=== PATIENT | female | born 1995 | race Caucasian/White ===

== ENCOUNTER 2022-01-15 20:44 | Observation (INO) | payer BC ==
--- NOTE | 2022-01-15 22:04 | ED ---
General Adult HPI - General Chief complaint: Skin/Abscess/Foreign Body Stated complaint: Recheck Time Seen by Provider: 01/15/22 21:36 Source: patient, RN notes reviewed Mode of arrival: ambulatory Limitations: no limitations - History of Present Illness Initial comments: 26-year-old female presents to the emergency department for evaluation of pilonidal cyst. Patient states she has been on oral antibiotics and was seen at [facility] for this complaint. Reports that surgeon there would not be able to see her until Wednesday for this issue, but she is very uncomfortable and unwilling to wait until that time. Denies fever, chills, drainage from the abscess, headache, nausea, vomiting, diarrhea, or dysuria. - Related Data Home Medications Medication Instructions Recorded Confirmed Cephalexin [Keflex] 500 mg PO Q8H 01/15/22 01/15/22 Ibuprofen [Motrin] 600 mg PO TID-W/MEALS PRN 01/15/22 01/15/22 Norgestimate-Ethinyl Estradiol 1 tab PO DAILY 01/15/22 01/15/22 [Sprintec 28 Day Tablet] metroNIDAZOLE [Flagyl] 500 mg PO Q8H 01/15/22 01/15/22 Allergies Allergy/AdvReac Type Severity Reaction Status Date / Time amoxicillin Allergy Unknown Verified 01/15/22 22:34 Iodinated Contrast Media Allergy Rash/Hives Verified 01/16/22 00:23 Penicillins Allergy Unknown Verified 01/15/22 22:34 Review of Systems ROS Statement: Those systems with pertinent positive or pertinent negative responses have been documented in the HPI. ROS Other: All systems not noted in ROS Statement are negative. Past Medical History Past Medical History: No Reported History History of Any Multi-Drug Resistant Organisms: None Reported Past Surgical History: Tonsillectomy Past Psychological History: No Psychological Hx Reported Smoking Status: Never smoker Past Alcohol Use History: Occasional Past Drug Use History: None Reported General Exam Limitations: no limitations (Well-developed, well-nourished female in no acute distress. Initial temperature 98.0, pulse 96 respirations 20, blood pressure 145/92, pulse ox 97% on room air.) General appearance: alert, in no apparent distress Eye exam: Present: normal appearance, PERRL, EOMI. Absent: scleral icterus, conjunctival injection, periorbital swelling ENT exam: Present: normal exam, mucous membranes moist Respiratory exam: Present: normal lung sounds bilaterally. Absent: respiratory distress, wheezes, rales, rhonchi, stridor Cardiovascular Exam: Present: regular rate, normal rhythm, normal heart sounds. Absent: systolic murmur, diastolic murmur, rubs, gallop, clicks GI/Abdominal exam: Present: soft, normal bowel sounds. Absent: distended, tenderness, guarding, rebound, rigid Back exam: Present: other (Large firm, tender, erythematous area on the right buttock near the sacral area; known pilonidal cyst) Neurological exam: Present: alert, oriented X3, CN II-XII intact Psychiatric exam: Present: normal affect, normal mood Skin exam: Present: warm, dry, intact Course Vital Signs 01/15/22 20:50 Temperature 98.0 F Pulse Rate 96 Respiratory 20 Rate Blood Pressure 145/92 O2 Sat by Pulse 97 Oximetry Medical Decision Making - Medical Decision Making This is a 26-year-old female with a recent diagnosis of pilonidal cyst who presents to the emergency department for further evaluation and treatment. Upon exam, patient is appearing and in no acute distress. She did receive 4 mg of morphine IM prior to departure from [facility] therefore is resting comfortably. Pilonidal cyst with abscess formation to the right of the sacrum extending into the buttock; it has no open or draining area. Vital signs are stable. Patient is afebrile and not tachycardic. Laboratory studies were reviewed showing mild leukocytosis. CT shows cystic fluid collection in the midline subcutaneous tissue over the lower sacrum consistent with an abscess with surrounding inflammatory changes. Patient did experience a mild ALLERGIC reaction with injection of contrast dye. She developed hives on her face accompanied by flushing; no oral edema, chest tightness, or shortness of breath. Patient was given Pepcid, Solu-Medrol, and Benadryl with resolution. This patient's care was provided in collaboration with my attending Dr. Rios who spoke with Dr. Borja. He agrees to accept this admission. Antibiotic therapy will be initiated and patient will remain nothing by mouth. Patient is agreeable with this plan. - Lab Data Result diagrams: 01/15/22 22:28 01/15/22 22:28 Lab Results 01/15/22 01/15/22 01/15/22 Range/Units 22:28 22:28 23:00 WBC 11.8 H (3.8-10.6) k/uL RBC 4.27 (3.80-5.40) m/uL Hgb 13.1 (11.4-16.0) gm/dL Hct 38.1 (34.0-46.0) % MCV 89.2 (80.0-100.0) fL MCH 30.6 (25.0-35.0) pg MCHC 34.3 (31.0-37.0) g/dL RDW 11.4 L (11.5-15.5) % Plt Count 241 (150-450) k/uL MPV 7.3 Neutrophils % 77 % Lymphocytes % 15 % Monocytes % 6 % Eosinophils % 1 % Basophils % 0 % Neutrophils # 9.0 H (1.3-7.7) k/uL Lymphocytes # 1.8 (1.0-4.8) k/uL Monocytes # 0.7 (0-1.0) k/uL Eosinophils # 0.1 (0-0.7) k/uL Basophils # 0.0 (0-0.2) k/uL Sodium 135 L (137-145) mmol/L Potassium 3.7 (3.5-5.1) mmol/L Chloride 100 (98-107) mmol/L Carbon Dioxide 21 L (22-30) mmol/L Anion Gap 14 mmol/L BUN 9 (7-17) mg/dL Creatinine 0.59 (0.52-1.04) mg/dL Est GFR (CKD-EPI)AfAm >90 (>60 ml/min/1.73 sqM) Est GFR (CKD-EPI)NonAf >90 (>60 ml/min/1.73 sqM) Glucose 100 H (74-99) mg/dL Calcium 9.5 (8.4-10.2) mg/dL Total Bilirubin 0.7 (0.2-1.3) mg/dL AST 22 (14-36) U/L ALT 11 (4-34) U/L Alkaline Phosphatase 83 (38-126) U/L Total Protein 7.5 (6.3-8.2) g/dL Albumin 4.2 (3.5-5.0) g/dL Urine HCG, Qual Not Detected (Not Detectd) - Radiology Data Radiology results: report reviewed, image reviewed CT of the pelvis with contrast was obtained. Report was reviewed in its entirety. Impression per Dr. Arellano is cystic fluid collection in the flank pain is tissue over the lower sacrum consistent with an abscess with surrounding inflammatory changes. Disposition Clinical Impression: Pilonidal cyst with abscess Disposition: ADMITTED IP TO THIS [facility] Condition: Serious Referrals: Silverio Tinsley MD [Primary Care Provider] - 1-2 days Decision Date: 01/16/22 Decision Time: 03:16
[2022-01-15 22:40] LABS: Basophils % (A) 0 %; Eosinophils # (A) 0.1 k/uL (0-0.7); Eosinophils % (A) 1 %; HCT 38.1 % (34.0-46.0); HGB 13.1 gm/dL (11.4-16.0); Lymphocytes # (A) 1.8 k/uL (1.0-4.8); Lymphocytes % (A) 15 %; MCH 30.6 pg (25.0-35.0); MCHC 34.3 g/dL (31.0-37.0); MCV 89.2 fL (80.0-100.0); Mean Platelet Volume 7.3; Monocytes # (A) 0.7 k/uL (0-1.0); Monocytes % (A) 6 %; Neutrophils % (A) 77 %; Platelet Count 241 k/uL (150-450); RBC 4.27 m/uL (3.80-5.40); RDW 11.4 % (11.5-15.5); WBC 11.8 k/uL (3.8-10.6)
[2022-01-15 22:58] LABS: ALT 11 U/L (4-34); AST 22 U/L (14-36); African American GFR (CKD) >90 (>60 ml/min/1.73 sqM); Albumin 4.2 g/dL (3.5-5.0); Alkaline Phosphatase 83 U/L (38-126); Anion Gap 14 mmol/L; Blood Urea Nitrogen 9 mg/dL (7-17); Calcium 9.5 mg/dL (8.4-10.2); Carbon Dioxide 21 mmol/L (22-30); Chloride 100 mmol/L (98-107); Glucose 100 mg/dL (74-99); Non-African American GFR(CKD) >90 (>60 ml/min/1.73 sqM); Potassium 3.7 mmol/L (3.5-5.1); Sodium 135 mmol/L (137-145); Total Bilirubin 0.7 mg/dL (0.2-1.3); Total Protein 7.5 g/dL (6.3-8.2)
[2022-01-16] MEDS ORDERED: FAMOTIDINE 20 MG/2 ML VIAL IV STA (00:06)
[2022-01-16] MEDS ORDERED: diphenhydrAMINE 50 MG/ML 1 ML VIAL IVP STA (00:06)
[2022-01-16] MEDS ORDERED: methylPREDNISolone SOD SUCCI 125 MG/2 ML VIAL IV STA (00:06)
--- NOTE | 2022-01-16 00:33 | CT ---
EXAMINATION TYPE: CT pelvis w con DATE OF EXAM: 01/15/2022 COMPARISON: None HISTORY: Cyst on tailbone CT DLP: 530.2 mGycm Automated exposure control for dose reduction was used. CONTRAST: Performed with IV Contrast, patient injected with 100 mL of Isovue 300. Images obtained from the level of the iliac crests to the subtrochanteric femurs with IV contrast. There is no free fluid in the pelvis. Bladder distends smoothly. Uterus is anteverted. There is no ev idence of mass within the pelvis. The sacroiliac joints appear intact. Pelvic ring is intact. There i s no evidence of free air. There is 3.6 x 2 cm fluid collection posterior to the lower sacrum in the subcutaneous tissues. There is some surrounding fat stranding. There is no evidence of focal bone destruction. Sacral segments h ave normal alignment. IMPRESSION: Cystic fluid collection in the midline subcutaneous tissues over the lower sacrum consistent with an abscess with surrounding inflammatory changes.
[2022-01-16] MEDS ORDERED: VANCOMYCIN IV PER PHARMACY 1 EACH MISC MISCELLANE PRN (01:40)
[2022-01-16] MEDS ORDERED: VANCOMYCIN 1,250 MG in SODIUM CHLORIDE 0.9% 250 ML IVPB ONE (01:45)
[2022-01-16] MEDS ORDERED: HYDROmorphone 0.5 MG/0.5 ML SYRINGE IVP PRN (02:01)
[2022-01-16] MEDS ORDERED: NALOXONE 0.4 MG/ML 1 ML VIAL IV PRN (02:01)
[2022-01-16] MEDS ORDERED: ONDANSETRON 4 MG/2 ML VIAL IVP PRN (02:01)
[2022-01-16] MEDS ORDERED: KETOROLAC 15 MG/ML 1 ML VIAL IVP PRN (02:01)
[2022-01-16] MEDS: SODIUM CHLORIDE 0.9% 1,000 ML IV SCH ×2 (04:18→12:23)
--- NOTE | 2022-01-16 10:13 | P.GSHP ---
<Claritza Mendez - Last Filed: 01/16/22 10:02> History of Present Illness H&P Date: 01/16/22 CHIEF COMPLAINT: Pilonidal abscess HISTORY OF PRESENT ILLNESS: This is a 26-year-old female with a pilonidal cyst for the past 1 month. Patient has been taking oral antibiotics without improvement. She reports increase in pain in size of the cyst. A week ago she did have drainage from the area. And then the drainage stopped. She went to [facility] yesterday due to the increase in pain at the buttocks sacral area. The patient reports that the surgeon would not be able to see her until Wednesday for this issue. Patient was unwilling to wait and wanted something done. Therefore she presented to [facility]. Computed tomography scan showed cystic fluid collection in the midline subcutaneous tissue over the lower sacrum consistent with an abscess with surrounding inflammatory changes. Patient also reports having fevers. Denies any nausea or vomiting. She did have evidence of leukocytosis with a white count of 11.8. She denies any prior history of a pilonidal cyst. Does report family history with the father and sister who had pilonidal cyst. Denies any diabetes. Past medical HISTORY: See list. PAST SURGICAL HISTORY: See list. MEDICATIONS: See list. ALLERGIES: See list. SOCIAL HISTORY: No illicit drug use. REVIEW OF SYSTEMS: CONSTITUTIONAL: Denies fever or chills. HEENT: Denies blurred vision, vision changes, or eye pain. Denies hemoptysis CARDIOVASCULAR: Denies chest pain or pressure. RESPIRATORY: No shortness of breath. GASTROINTESTINAL: See HPI for pertinent findings HEMATOLOGIC: Denies bleeding disorders. GENITOURINARY: Denies any blood in urine or increased urinary frequency. SKIN: Denies pruitis. Denies rash. PHYSICAL EXAM: VITAL SIGNS: Reviewed GENERAL: Well-developed in no acute distress. HEENT: No sclera icterus. Extraocular movements grossly intact. Moist buccal mucosa. Head is atraumatic, normocephalic. No nasal drainage. ABDOMEN: Soft. Nondistended. Nontender NEUROLOGIC: Alert and oriented. Cranial nerves II through XII grossly intact. SKIN: Patient has area about 3-5 cm and induration and erythema along the left buttocks into the sacral area. No drainage noted. LABORATORY DATA: WBC is 11.8 hemoglobin 13.1 platelets 241 sodium 135 potassium 3.7 BUN 9 creatinine 0.59 LFTs normal Urine hCG negative COVID-19 detected IMAGING: Computed tomography scan findings as stated above ASSESSMENT: 1. Pilonidal abscess PLAN: -Patient scheduled for incision and drainage of pilonidal abscess today with Dr. Borja -Keep patient nothing by mouth -Continue antibiotics -Continue pain medication as needed -Continue IV fluids [employer] Receiving [employer] note has been reviewed by physician. Signing provider agrees with the documented findings, assessment, and plan of care. Past Medical History Past Medical History: No Reported History Additional Past Medical History / Comment(s): has pylinoidal cyst History of Any Multi-Drug Resistant Organisms: None Reported Past Surgical History: Tonsillectomy Past Anesthesia/Blood Transfusion Reactions: No Reported Reaction Past Psychological History: No Psychological Hx Reported Smoking Status: Never smoker Past Alcohol Use History: Occasional Past Drug Use History: None Reported Medications and Allergies Home Medications Medication Instructions Recorded Confirmed Type Cephalexin [Keflex] 500 mg PO Q8H 01/15/22 01/15/22 History Ibuprofen [Motrin] 600 mg PO TID-W/MEALS PRN 01/15/22 01/15/22 History Norgestimate-Ethinyl Estradiol 1 tab PO DAILY 01/15/22 01/15/22 History [Sprintec 28 Day Tablet] metroNIDAZOLE [Flagyl] 500 mg PO Q8H 01/15/22 01/15/22 History Allergies Allergy/AdvReac Type Severity Reaction Status Date / Time amoxicillin Allergy Unknown Verified 01/15/22 22:34 Iodinated Contrast Media Allergy Rash/Hives Verified 01/16/22 00:23 Penicillins Allergy Unknown Verified 01/15/22 22:34 Surgical - Exam Vital Signs Temp Pulse Resp BP Pulse Ox 98.0 F 96 20 145/92 97 01/15/22 20:50 01/15/22 20:50 01/15/22 20:50 01/15/22 20:50 01/15/22 20:50 Results - Labs 01/15/22 22:28 01/15/22 22:28 Abnormal Lab Results - Last 24 Hours (Table) 01/15/22 01/15/22 Range/Units 22:28 22:28 WBC 11.8 H (3.8-10.6) k/uL RDW 11.4 L (11.5-15.5) % Neutrophils # 9.0 H (1.3-7.7) k/uL Sodium 135 L (137-145) mmol/L Carbon Dioxide 21 L (22-30) mmol/L Glucose 100 H (74-99) mg/dL Diabetes panel 01/15/22 Range/Units 22:28 Sodium 135 L (137-145) mmol/L Potassium 3.7 (3.5-5.1) mmol/L Chloride 100 (98-107) mmol/L Carbon Dioxide 21 L (22-30) mmol/L BUN 9 (7-17) mg/dL Creatinine 0.59 (0.52-1.04) mg/dL Glucose 100 H (74-99) mg/dL Calcium 9.5 (8.4-10.2) mg/dL AST 22 (14-36) U/L ALT 11 (4-34) U/L Alkaline Phosphatase 83 (38-126) U/L Total Protein 7.5 (6.3-8.2) g/dL Albumin 4.2 (3.5-5.0) g/dL Calcium panel 01/15/22 Range/Units 22:28 Calcium 9.5 (8.4-10.2) mg/dL Albumin 4.2 (3.5-5.0) g/dL Pituitary panel 01/15/22 Range/Units 22:28 Sodium 135 L (137-145) mmol/L Potassium 3.7 (3.5-5.1) mmol/L Chloride 100 (98-107) mmol/L Carbon Dioxide 21 L (22-30) mmol/L BUN 9 (7-17) mg/dL Creatinine 0.59 (0.52-1.04) mg/dL Glucose 100 H (74-99) mg/dL Calcium 9.5 (8.4-10.2) mg/dL Adrenal panel 01/15/22 Range/Units 22:28 Sodium 135 L (137-145) mmol/L Potassium 3.7 (3.5-5.1) mmol/L Chloride 100 (98-107) mmol/L Carbon Dioxide 21 L (22-30) mmol/L BUN 9 (7-17) mg/dL Creatinine 0.59 (0.52-1.04) mg/dL Glucose 100 H (74-99) mg/dL Calcium 9.5 (8.4-10.2) mg/dL Total Bilirubin 0.7 (0.2-1.3) mg/dL AST 22 (14-36) U/L ALT 11 (4-34) U/L Alkaline Phosphatase 83 (38-126) U/L Total Protein 7.5 (6.3-8.2) g/dL Albumin 4.2 (3.5-5.0) g/dL <Gabino Borja - Last Filed: 01/16/22 13:24> History of Present Illness I have personally seen and examined the patient, reviewed the [facility] /PAs history, exam and MDM and agree with the assessment and plan as written. Based on total visit time, I have performed more than 50% of the visit. As above: CAT scan findings discussed with patient. Recommend incision and drainage of pilonidal cyst with abscess. Patient informed that this would not be a definitive treatment in all likelihood for her pilonidal cyst and that definitive treatment would have to occur after appropriate wound healing. She understands the wound will be left open and packed. Duration to healing is difficult to say with certainty but could last anywhere from a few weeks to a few months. Patient is agreeable at this time. Continue antibiotics. Surgical - Exam Vital Signs Temp Pulse Resp BP Pulse Ox 98.0 F 96 20 145/92 97 01/15/22 20:50 01/15/22 20:50 01/15/22 20:50 01/15/22 20:50 01/15/22 20:50 Results - Labs 01/15/22 22:28 01/15/22 22:28 Abnormal Lab Results - Last 24 Hours (Table) 01/15/22 01/15/22 Range/Units 22:28 22:28 WBC 11.8 H (3.8-10.6) k/uL RDW 11.4 L (11.5-15.5) % Neutrophils # 9.0 H (1.3-7.7) k/uL Sodium 135 L (137-145) mmol/L Carbon Dioxide 21 L (22-30) mmol/L Glucose 100 H (74-99) mg/dL Diabetes panel 01/15/22 Range/Units 22:28 Sodium 135 L (137-145) mmol/L Potassium 3.7 (3.5-5.1) mmol/L Chloride 100 (98-107) mmol/L Carbon Dioxide 21 L (22-30) mmol/L BUN 9 (7-17) mg/dL Creatinine 0.59 (0.52-1.04) mg/dL Glucose 100 H (74-99) mg/dL Calcium 9.5 (8.4-10.2) mg/dL AST 22 (14-36) U/L ALT 11 (4-34) U/L Alkaline Phosphatase 83 (38-126) U/L Total Protein 7.5 (6.3-8.2) g/dL Albumin 4.2 (3.5-5.0) g/dL Calcium panel 01/15/22 Range/Units 22:28 Calcium 9.5 (8.4-10.2) mg/dL Albumin 4.2 (3.5-5.0) g/dL Pituitary panel 01/15/22 Range/Units 22:28 Sodium 135 L (137-145) mmol/L Potassium 3.7 (3.5-5.1) mmol/L Chloride 100 (98-107) mmol/L Carbon Dioxide 21 L (22-30) mmol/L BUN 9 (7-17) mg/dL Creatinine 0.59 (0.52-1.04) mg/dL Glucose 100 H (74-99) mg/dL Calcium 9.5 (8.4-10.2) mg/dL Adrenal panel 01/15/22 Range/Units 22:28 Sodium 135 L (137-145) mmol/L Potassium 3.7 (3.5-5.1) mmol/L Chloride 100 (98-107) mmol/L Carbon Dioxide 21 L (22-30) mmol/L BUN 9 (7-17) mg/dL Creatinine 0.59 (0.52-1.04) mg/dL Glucose 100 H (74-99) mg/dL Calcium 9.5 (8.4-10.2) mg/dL Total Bilirubin 0.7 (0.2-1.3) mg/dL AST 22 (14-36) U/L ALT 11 (4-34) U/L Alkaline Phosphatase 83 (38-126) U/L Total Protein 7.5 (6.3-8.2) g/dL Albumin 4.2 (3.5-5.0) g/dL
[2022-01-16] MEDS: VANCOMYCIN 1,250 MG in SODIUM CHLORIDE 0.9% 250 ML IVPB SCH ×2 (12:19→20:58)
[2022-01-16] MEDS ORDERED: IV FLUID CONTINUATION 950 ML IV ONE (13:25)
[2022-01-16] MEDS ORDERED: DEXAMETHASONE SOD PHOSPHATE 4 MG/ML 1 ML VIAL IVP ONE (13:27)
[2022-01-16] MEDS ORDERED: SCOPOLAMINE 1.5MG/72HR PATCH TRANSDERM ONE (13:27)
[2022-01-16] MEDS ORDERED: fentaNYL (PF) 50 MCG/ML 2 ML AMP ONE (13:46)
[2022-01-16] MEDS ORDERED: SUCCINYLCHOLINE CHLORIDE 100 MG/5 ML SYR IV ONE (13:46)
[2022-01-16] MEDS ORDERED: MIDAZOLAM 2 MG/2 ML VIAL ONE (13:46)
[2022-01-16] MEDS ORDERED: KETAMINE 10 MG/ML 20 ML VIAL ONE (13:46)
[2022-01-16] MEDS ORDERED: LIDOCAINE 1% INJ 10MG/ML (20 ML MDV) ONE (13:46)
[2022-01-16] MEDS ORDERED: PROPOFOL 10 MG/ML 20 ML VIAL IV ONE (13:46)
[2022-01-16] MEDS ORDERED: BUPIVACAINE (PF) 0.25% 30 ML VIAL SQ ONE (14:15)
[2022-01-16] MEDS ORDERED: IBUPROFEN 600 MG TAB PO PRN (14:42)
[2022-01-16] MEDS ORDERED: ACETAMINOPHEN TAB 325 MG TAB PO PRN (14:42)
--- NOTE | 2022-01-16 14:45 | P.OP ---
Date of Procedure: 01/16/22 Procedure(s) Performed: PREOPERATIVE DIAGNOSIS: Pilonidal cyst with abscess POSTOPERATIVE DIAGNOSIS: Same PROCEDURE: Incision and drainage pilonidal cyst with abscess SURGEON: Huong EBL: 10 Ambrosio ANESTHESIA: Gen. COMPLICATIONS: None OPERATIVE PROCEDURE: Patient placed in the prone position after general anesth esia achieved. The gluteal crease was prepped and draped sterilely. The patient had a large fluctuant area along the gluteal crease. Initially there were no visible sinus openings however after I bluntly palpated the gluteal crease there was a small skin opening noted. This was partially excised with the central portion of skin entering into a large abscess cavity. Abscess cavity measured 7 x 3 x 3 cm. Purulent fluid was evacuated. Septations were broken up using blunt dissection. Cultures were taken. Area was thoroughly irrigated with saline. The wound went down to the sacral bone. The bone felt smooth without any clinical suspicion for osteomyelitis. No subcutaneous tunneling was seen other than superiorly from our incision site. The tunneling went about 2 cm superiorly from the superior extent of our incision. One-inch iodoform gauze was packed into the wound after irrigation took place. The area was localized with Marcaine solution. Sterile dressings were applied. DISPOSITION: Stable to recovery room
[2022-01-16] MEDS: HYDROcodone/APAP 5-325MG 1 EACH TAB PO PRN (15:34)
[2022-01-16] MEDS: HEPARIN SODIUM,PORCINE/PF 5,000 UNIT/0.5 ML SYRINGE SQ SCH (15:34)
[2022-01-17] MEDS: HEPARIN SODIUM,PORCINE/PF 5,000 UNIT/0.5 ML SYRINGE SQ SCH ×3 (00:10→15:00)
[2022-01-17] MEDS: VANCOMYCIN 1,250 MG in SODIUM CHLORIDE 0.9% 250 ML IVPB SCH ×3 (03:12→18:29)
[2022-01-17] MEDS: SODIUM CHLORIDE 0.9% 1,000 ML IV SCH ×2 (06:13→16:46)
[2022-01-17] MEDS: HYDROcodone/APAP 5-325MG 1 EACH TAB PO PRN ×4 (08:16→22:40)
[2022-01-17] MEDS ORDERED: VANCOMYCIN TROUGH DUE 1 EACH MISC MISCELLANE ONE (10:00)
[2022-01-17 10:40] LABS: Basophils % (A) 0 %; Eosinophils % (A) 0 %; HCT 34.1 % (34.0-46.0); HGB 11.7 gm/dL (11.4-16.0); Lymphocytes # (A) 1.4 k/uL (1.0-4.8); Lymphocytes % (A) 16 %; MCH 31.4 pg (25.0-35.0); MCHC 34.3 g/dL (31.0-37.0); MCV 91.8 fL (80.0-100.0); Mean Platelet Volume 7.6; Monocytes # (A) 0.3 k/uL (0-1.0); Monocytes % (A) 4 %; Neutrophils # (A) 7.1 k/uL (1.3-7.7); Neutrophils % (A) 80 %; Platelet Count 236 k/uL (150-450); RBC 3.71 m/uL (3.80-5.40); RDW 11.6 % (11.5-15.5); WBC 8.9 k/uL (3.8-10.6)
[2022-01-17 10:50] LABS: African American GFR (CKD) >90 (>60 ml/min/1.73 sqM); Anion Gap 2 mmol/L; Blood Urea Nitrogen 5 mg/dL (7-17); Calcium 8.2 mg/dL (8.4-10.2); Carbon Dioxide 28 mmol/L (22-30); Chloride 110 mmol/L (98-107); Glucose 174 mg/dL (74-99); Non-African American GFR(CKD) >90 (>60 ml/min/1.73 sqM); Sodium 140 mmol/L (137-145)
--- NOTE | 2022-01-17 11:15 | P.PN ---
Subjective Progress Note Date: 01/17/22 Principal diagnosis: Pilonidal abscess Patient says her pain is slightly improved today. She is afebrile. Today's white blood cell count is normal. Packing remains in place. Cultures pending. Objective - Vital Signs Vital signs: Vital Signs Temp 98.2 F 01/17/22 07:17 Pulse 69 01/17/22 07:17 Resp 18 01/17/22 08:00 BP 95/59 01/17/22 07:17 Pulse Ox 100 01/17/22 07:17 Intake & Output 01/16/22 01/17/22 01/17/22 18:59 06:59 18:59 Intake Total 896 Output Total 10 Balance 886 Weight 63.503 kg Intake: IV 600 Oral 296 Output: Estimated Blood Loss 10 Other: # Voids 1 1 # Bowel Movements 0 - Exam Pilonidal wound with mild erythema and mild tenderness - Labs CBC & Chem 7: 01/17/22 10:24 01/17/22 10:24 Labs: Abnormal Lab Results - Last 24 Hours (Table) 01/17/22 01/17/22 Range/Units 10:24 10:24 RBC 3.71 L (3.80-5.40) m/uL Chloride 110 H (98-107) mmol/L BUN 5 L (7-17) mg/dL Glucose 174 H (74-99) mg/dL Calcium 8.2 L (8.4-10.2) mg/dL Microbiology - Last 24 Hours (Table) 01/16/22 14:24 Gram Stain - Preliminary Buttock Wound Culture - Preliminary 01/16/22 02:10 Blood Culture - Preliminary Blood No Growth after 24 hours 01/16/22 02:16 Blood Culture - Preliminary Blood No Growth after 24 hours 01/16/22 14:24 Anaerobic Culture - Preliminary Buttock Assessment and Plan (1) Pilonidal cyst with abscess Narrative/Plan: Patient doing fairly well today. Patient has a large abscess cavity. Await cultures. Continue antibiotics. Begin local dressing changes today. Possible discharge tomorrow. Current Visit: Yes Status: Acute Code(s): L05.01 - PILONIDAL CYST WITH ABSCESS SNOMED Code(s): 201502337
[2022-01-17] MEDS ORDERED: GABAPENTIN 100 MG CAP PO SCH (21:30)
[2022-01-18 02:06] VITALS: RESP 16
[2022-01-18] MEDS: HEPARIN SODIUM,PORCINE/PF 5,000 UNIT/0.5 ML SYRINGE SQ SCH ×2 (02:27→09:04)
[2022-01-18] MEDS: VANCOMYCIN 1,250 MG in SODIUM CHLORIDE 0.9% 250 ML IVPB SCH (02:31)
[2022-01-18 07:28] VITALS: BP 113/76; PULSE 78; TEMP 98
[2022-01-18] MEDS: SODIUM CHLORIDE 0.9% 1,000 ML IV SCH (09:04)
--- NOTE | 2022-01-18 09:50 | P.DS ---
Providers Date of admission: 01/16/22 06:06 Expected date of discharge: 01/18/22 Attending physician: Gabino Borja Primary care physician: Silverio Tinsley - Discharge Diagnosis(es) (1) Pilonidal cyst with abscess Patient admitted for pilonidal cyst with abscess. Underwent incision and drainage of the pilonidal abscess 2 days ago. Her first dressing change was performed yesterday. Tolerated that fairly well. She has been afebrile. White blood cell count is normal. Cultures are negative to date. He would like to go home. Will plan discharge today. Follow-up 01/28. Daily dressing changes with iodoform gauze per the family. Restriction for Levaquin and [place] will be provided on discharge. Current Visit: Yes Status: Acute Patient Condition at Discharge: Serious Plan - Discharge Summary Discharge Rx Participant: No New Discharge Prescriptions: No Action metroNIDAZOLE [Flagyl] 500 mg PO Q8H Norgestimate-Ethinyl Estradiol [Sprintec 28 Day Tablet] 1 tab PO DAILY Ibuprofen [Motrin] 600 mg PO TID-W/MEALS PRN PRN Reason: Pain Cephalexin [Keflex] 500 mg PO Q8H Discharge Medication List Cephalexin [Keflex] 500 mg PO Q8H 01/15/22 [History] Ibuprofen [Motrin] 600 mg PO TID-W/MEALS PRN 01/15/22 [History] Norgestimate-Ethinyl Estradiol [Sprintec 28 Day Tablet] 1 tab PO DAILY 01/15/22 [History] metroNIDAZOLE [Flagyl] 500 mg PO Q8H 01/15/22 [History] Follow up Appointment(s)/Referral(s): Silverio Tinsley MD [Primary Care Provider] - 1-2 days Patient Instructions/Handouts: Pilonidal Cyst Excision (DC)
[2022-01-18] MEDS: HYDROcodone/APAP 5-325MG 1 EACH TAB PO PRN (10:11)
== END 2022-01-18 10:42 | disposition home or self-care (01) ==
LOC: EC 20:44 → 4SSUR 01-16 06:06
PROVIDERS: ADMIT Surgery; ATTEND Surgery
DX: L05.01 Pilonidal cyst with abscess (principal); T50.8X5A Adverse effect of diagnostic agents, initial encounter; Z20.822 Contact with and (suspected) exposure to COVID-19; Z88.0 Allergy status to penicillin; Z91.048 Other nonmedicinal substance allergy status; Z84.0 Family history of diseases of the skin and subcutaneous tissue
CPT/HCPCS: 10080; 99285; 96365; 96366; 96367; 96375; 36415; 81025 ×2; 80053; 80048; 85025 ×2; 80202; 87040; 87070; 87205; 87075; 87635; 72193; G0378 ×3; J2250; J3370 ×3; J1200; J1100; J2930; J2405; J0696 ×4; J2001; J3010; J0330; J2704; J1644 ×2

== ENCOUNTER → 2022-07-29 | Outpatient (CLI) | payer BC | END | disposition home or self-care (01) | LOC: LABWHC1 11:54 | PROVIDERS: ATTEND Otolaryngology | DX: J30.89 Other allergic rhinitis (principal) | CPT/HCPCS: 36415 ==

== ENCOUNTER 2023-09-16 00:56 | Emergency (ER) | payer BC ==
--- NOTE | 2023-09-16 01:57 | XR ---
EXAM: XR Right Humerus, 2 or More Views CLINICAL HISTORY: ITS.REASON XR Reason: fall TECHNIQUE: Frontal and lateral views of the right humerus. COMPARISON: No relevant prior studies available. FINDINGS: Bones/joints: Unremarkable. No acute fracture. No dislocation. Soft tissues: Elevated anterior and posterior fat pads. IMPRESSION: 1. No humerus fracture. 2. Elbow effusion. Elbow x-rays could be done for further evaluation.
[2023-09-16] MEDS ORDERED: ACETAMINOPHEN TAB 500 MG TAB PO STA (02:08)
--- NOTE | 2023-09-16 02:42 | XR ---
EXAM: XR Right Forearm, 2 Views CLINICAL HISTORY: ITS.REASON XR Reason: effusion TECHNIQUE: Frontal and lateral views of the right forearm. COMPARISON: No relevant prior studies available. FINDINGS: Bones/joints: Nondisplaced fracture radial head. Small elbow joint effusion. No dislocation. Soft tissues: Unremarkable. IMPRESSION: Nondisplaced fracture radial head.
--- NOTE | 2023-09-16 02:53 | ED ---
Upper Extremity HPI - General Chief Complaint: Extremity Injury, Upper Stated Complaint: Right Arm Injury Time Seen by Provider: 09/16/23 01:07 Source: patient Mode of arrival: ambulatory - History of Present Illness Initial Comments: Patient is 27-year-old female who presents to the emergency department for right arm pain. Patient fell due to slipping on water near a pool during her honeymoon on Wednesday. She not had her head or lose consciousness. Patient reports pain in her upper arm which radiates to her elbow. She denies other injury. - Related Data Home Medications Medication Instructions Recorded Confirmed Cephalexin [Keflex] 500 mg PO Q8H 01/15/22 01/15/22 Ibuprofen [Motrin] 600 mg PO TID-W/MEALS PRN 01/15/22 01/15/22 metroNIDAZOLE [Flagyl] 500 mg PO Q8H 01/15/22 01/15/22 norgestimate-ethinyl estradioL 1 tab PO DAILY 01/15/22 01/15/22 [Sprintec 28 Day Tablet] Previous Rx's Medication Instructions Recorded HYDROcodone/APAP 5-325MG [[place] 1 tab PO Q6HR PRN 3 Days #10 tab 01/18/22 5-325] levoFLOXacin [Levaquin] 500 mg PO DAILY 10 Days #10 tab 01/18/22 Ibuprofen [Motrin] 600 mg PO Q6HR PRN #30 tab 09/16/23 Allergies Allergy/AdvReac Type Severity Reaction Status Date / Time amoxicillin Allergy Unknown Verified 09/16/23 01:02 Iodinated Contrast Media Allergy Rash/Hives Verified 09/16/23 01:02 Penicillins Allergy Unknown Verified 09/16/23 01:02 Review of Systems ROS Statement: Those systems with pertinent positive or pertinent negative responses have been documented in the HPI. ROS Other: All systems not noted in ROS Statement are negative. Past Medical History Past Medical History: No Reported History Additional Past Medical History / Comment(s): has pylinoidal cyst History of Any Multi-Drug Resistant Organisms: None Reported Past Surgical History: Tonsillectomy Past Anesthesia/Blood Transfusion Reactions: No Reported Reaction Past Psychological History: No Psychological Hx Reported Smoking Status: Never smoker Past Alcohol Use History: Occasional Past Drug Use History: None Reported General Exam General appearance: alert Head exam: Present: atraumatic, normocephalic, normal inspection Eye exam: Present: normal appearance, PERRL, EOMI. Absent: scleral icterus, conjunctival injection, periorbital swelling Respiratory exam: Present: normal lung sounds bilaterally. Absent: respiratory distress, wheezes, rales, rhonchi, stridor Cardiovascular Exam: Present: regular rate, normal rhythm, normal heart sounds. Absent: systolic murmur, diastolic murmur, rubs, gallop, clicks Right Shoulder Exam: Present: normal inspection, full ROM. Absent: tenderness, swelling Upper Arm exam: Present: full ROM, tenderness, swelling (distal upper arm). Absent: normal inspection, abrasion, laceration, ecchymosis, deformity, crepidus, dislocation, erythema, other Elbow exam: Present: full ROM, tenderness, effusion, pain w/ pronation/supination, tenderness over radial head. Absent: normal inspection Neuro motor exam: Present: wrist extension intact, thumb opposition intact, thumb IP flexion intact, thumb adduction intact, fingers 2-5 abduction intact Vascular: Present: normal capillary refill Neurological exam: Present: alert Psychiatric exam: Present: normal affect, normal mood Skin exam: Present: warm, dry, intact, normal color. Absent: rash Course Vital Signs 09/16/23 09/16/23 01:00 03:26 Temperature 98 F 98.2 F Pulse Rate 78 68 Respiratory 19 18 Rate Blood Pressure 136/85 118/76 O2 Sat by Pulse 98 98 Oximetry Procedures - Orthopedic Splinting/Casting Injury #1 Side: right Upper Extremity Immobilizer: posterior splint Medical Decision Making - Medical Decision Making Was pt. sent in by a medical professional or institution (, PA, [employer], urgent care, hospital, or skilled nursing...) When possible be specific @ -No Did you speak to anyone other than the patient for history (EMS, parent, family, police, friend...)? What history was obtained from this source @ -No Did you review nursing and triage notes (agree or disagree)? Why? @ -I reviewed and agree with nursing and triage notes Were old charts reviewed (outside hosp., previous admission, EMS record, old EKG, old radiological studies, urgent care reports/EKG's, skilled nursing records)? Report findings @ -No old charts were reviewed Differential Diagnosis (chest pain, altered mental status, abdominal pain women, abdominal pain men, vaginal bleeding, weakness, fever, dyspnea, syncope, headache, dizziness, GI bleed, back pain, seizure, CVA, palpatations, mental health)? @ -Arm fracture, arm sprain, contusion EKG interpreted by me (3pts min.). @ -As above X-rays interpreted by me (1pt min.). @ nondisplaced fracture of the radial head CT interpreted by me (1pt min.). @ -None done U/S interpreted by me (1pt. min.). @ -None done What testing was considered but not performed or refused? (CT, X-rays, U/S, labs)? Why? @ -None What meds were considered but not given or refused? Why? @ -None Did you discuss the management of the patient with other professionals (professionals i.e. , PA, [employer], lab, RT, psych nurse, school social worker, dust collector operator, teacher, collections officer, gearcase assembler)? Give summary @ -No Was smoking cessation discussed for >3mins.? @ -No Was critical care preformed (if so, how long)? @ -No Were there social determinants of health that impacted care today? How? (Homelessness, low income, unemployed, alcoholism, drug addiction, transportation, low edu. Level, literacy, decrease access to med. care, [facility], rehab)? @ -[No] Was there de-escalation of care discussed even if they declined (Discuss DNR or withdrawal of care, Hospice)? DNR status @ -[No] What co-morbidities impacted this encounter? (DM, HTN, Smoking, COPD, CAD, Cancer, CVA, ARF, Chemo, Hep., AIDS, mental health diagnosis, sleep apnea, morbid obesity)? @ -[None] Was patient admitted / discharged? Hospital course, mention meds given and route, prescriptions, significant lab abnormalities, going to OR and other pertinent info. @ -27-year-old presenting with right arm pain after fall. Neurovascularly intact.. X-ray interpreted by myself showing nondisplaced fracture of the radial head. Patient placed in posterior splint and sling cap refill < 2 seconds. Pain is controlled fracture care discussed in detail. Patient to follow-up with orthopedic coder. Undiagnosed new problem with uncertain prognosis? @ -[No] Drug Therapy requiring intensive monitoring for toxicity (Heparin, Nitro, Insulin, Cardizem)? @ -[No] Were any procedures done? @ splint Diagnosis/symptom? @ -right radial head fracture Acute, or Chronic, or Acute on Chronic? @ -acute Uncomplicated (without systemic symptoms) or Complicated (systemic symptoms)? @ -uncomplicated Side effects of treatment? @ -[No] Exacerbation, Progression, or Severe Exacerbation? @ -[No] Poses a threat to life or bodily function? How? (Chest pain, [place], MA, pneumonia, PE, COPD, DKA, ARF, appy, cholecystitis, CVA, Diverticulitis, Homicidal, Suicidal, threat to staff... and all critical care pts) @ -No Dr. Traylor is my attending Disposition Clinical Impression: Right radial head fracture Disposition: HOME SELF-CARE Condition: Good Instructions (If sedation given, give patient instructions): Arm Fracture in Adults (ED) Additional Instructions: Alternate Tylenol and Motrin every 3-4 hours for pain. Keep splint clean and dry. Follow-up with orthopedic coder in 1-2 days. Return to the emergency department if you experience new, concerning, or worsening symptoms Prescriptions: Ibuprofen [Motrin] 600 mg PO Q6HR PRN #30 tab PRN Reason: Pain Is patient prescribed a controlled substance at d/c from ED?: No Referrals: Lilliana Borja MD [Primary Care Provider] - 1-2 days Javan Cosby DO [Doctor of Osteopathic Medicine] - 1-2 days
[2023-09-16 03:33] VITALS: BP 118/76; PULSE 68; RESP 18; TEMP 98.2
== END 2023-09-16 03:29 | disposition home or self-care (01) ==
LOC: EC 00:56
DX: S52.124A Nondisplaced fracture of head of right radius, initial encounter for closed fracture (principal); Z88.0 Allergy status to penicillin; Z91.041 Radiographic dye allergy status; W01.0XXA Fall on same level from slipping, tripping and stumbling without subsequent striking against object, initial encounter
CPT/HCPCS: 29125; 99283

== ENCOUNTER 2024-04-21 09:05 | Outpatient (CLI) | payer BC ==
[2024-04-21 10:26] LABS: Appearance,Urine Clear (Clear); Bilirubin,Urine Negative (Negative); Blood,Urine Negative (Negative); Color,Urine Colorless; Glucose,Urine (UA) Negative (Negative); Ketones,Urine Negative (Negative); Leukocyte Esterase,Urine Negative (Negative); Nitrite,Urine Negative (Negative); Protein,Urine Negative (Negative); Specific Gravity,Urine 1.007 (1.001-1.035); Urobilinogen,Urine <2.0 mg/dL (<2.0)
[2024-04-21 10:36] VITALS: BP 114/70; PULSE 105; RESP 16; TEMP 97.5
--- NOTE | 2024-06-12 14:55 | P.MSEPDOC ---
Presenting Problems - Arrival Data Date of Arrival on Unit: 04/21/24 Time of Arrival on Unit: 09:05 Mode of Transport: Ambulatory - Complaint OB-Reason for Admission/Chief Complaint: Other Comment: 27 2/7 presents with light pink with wiping after using the bathroom this morning, states she noted some nausea, lightheadedness, and dizziness, patient states she currently does not have those symptoms now. The patient states she did not feel the baby move as much this am as he normally does. Medical History - Information : 1 Para: 0 Term: 0 : 0 Abortions: Spontaneous or Elective: 0 Number of Living Children: 0 - Gestational Age Gestational Age by IMTIAZ (wks/days): 27 Weeks and 2 Days Review of Systems - Review of Systems Constitutional: No problems Breast: No problems ENT: No problems Cardiovascular: No problems Respiratory: No problems Gastrointestinal: No problems Genitourinary: No problems Musculoskeletal: No problems Neurological: No problems Skin: No problems Vital Signs - Temperature Temperature: 97.5 F - Pulse Pulse Oximetery Pulse Rate: 105 Pulse Assessment Method: Pulse Oximetry - Respirations Respiratory Rate: 16 Oxygen Delivery Method: Room Air - Blood Pressure Sitting Blood Pressure: 114/70 Blood Pressure Mean: 84 Blood Pressure Source: Automatic Cuff Medical Screen Scoring - Cervical Exam Membranes: Intact - Uterine Contractions Resting: Soft to palpation - Assessment - Baby A Baseline FHR: 140 Heart Rate - NICHD Category: Category I (Normal) NST: Reactive Physician Notification - Physician Notified Physician Notified Date: 04/21/24 Physician Notified Time: 10:23 Physician: Brittany Lopez New Order Received: Yes - Notification Comment Comment: Orders given to collect and send UA, orders given to check cervix call physican with report. 11:05 Orders given to discharge patient home with instructions Maternal Triage Index - Urgent/Priority 2 Urgent Priority 2: Yes Provider Notified: Brittany Lopez Provider Notified Time: 10:23 Criteria Met for Priority 2: 27 2/7 weeks presents with pink discharge at home when wiping after using the bathroom. Patient reports some lower pelvic cramping. Disposition - Disposition OB Disposition: Discharge to home, Written follow up instructions reviewed Discharge Date: 04/21/24 Discharge Time: 11:10 I agree with the RN Medical Screening Exam: Yes Physician's MSE Comment: I have neither seen nor examined the patient Case reviewed; plan agreed upon as documented in EMR&OBIX.: Yes Diagnosis: MATERNAL CARE FOR PROBLEM, UNSP, THIRD * DO NOT USE *
== END 2024-04-21 11:10 | disposition home or self-care (01) ==
LOC: FBPOP 09:05
PROVIDERS: ATTEND Obstetrics & Gynecology
DX: O26.892 Other specified pregnancy related conditions, second trimester (principal); R42 Dizziness and giddiness; R11.0 Nausea; Z3A.27 27 weeks gestation of pregnancy; Z88.0 Allergy status to penicillin; Z91.041 Radiographic dye allergy status
CPT/HCPCS: 81003; 99213

== ENCOUNTER 2024-07-14 16:35 | Outpatient (CLI) | payer BC | END 2024-07-14 17:30 | LOC: FBPOP 16:35 | PROVIDERS: ATTEND Obstetrics & Gynecology | CPT/HCPCS: 59025; 84112; 99213 ==

== ENCOUNTER 2024-07-17 15:10 | Inpatient (IN) | payer BC ==
[2024-07-17] MEDS ORDERED: METHYLERGONOVINE 0.2 MG/ML 1 ML AMP IM PRN (15:19)
[2024-07-17] MEDS ORDERED: CARBOPROST TROMETHAMINE 250 MCG/ML 1 ML AMP IM PRN (15:19)
[2024-07-17] MEDS ORDERED: miSOPROStoL 200 MCG TAB PO PRN (15:19)
[2024-07-17] MEDS ORDERED: OXYTOCIN 10 UNIT/ML 1 ML VIAL IM PRN (15:19)
[2024-07-17] MEDS ORDERED: TRANEXAMIC 1,000 MG/100ML-NACL 1,000 MG in EMPTY BAG 1 BAG IV PRN (15:19)
[2024-07-17] MEDS: LACTATED RINGERS 1,000 ML IV SCH (15:35)
[2024-07-17 16:10] LABS: Basophils # (A) 0.1 k/uL (0-0.2); Basophils % (A) 1 %; Eosinophils # (A) 0.1 k/uL (0-0.7); Eosinophils % (A) 1 %; HCT 37.8 % (34.0-46.0); HGB 12.9 gm/dL (11.4-16.0); Lymphocytes # (A) 1.8 k/uL (1.0-4.8); Lymphocytes % (A) 21 %; MCH 31.9 pg (25.0-35.0); MCV 93.7 fL (80.0-100.0); Mean Platelet Volume 10.1; Monocytes # (A) 0.4 k/uL (0-1.0); Monocytes % (A) 4 %; Neutrophils # (A) 6.2 k/uL (1.3-7.7); Neutrophils % (A) 72 %; Platelet Count 142 k/uL (150-450); RBC 4.04 m/uL (3.80-5.40); RDW 13.6 % (11.5-15.5); WBC 8.6 k/uL (3.8-10.6)
--- NOTE | 2024-07-17 17:58 | P.HPOB ---
History of Present Illness H&P Date: 07/17/24 Chief Complaint: IUP at 39-5/7 weeks, oligohydramnios, breech presentation This is a 28-year-old 1 para 0 at 39-5/7 weeks, estimated due date of 828 the presents to labor and delivery for primary secondary to oligohydramnios and breech presentation. Ultrasound revealing DUC of 2.5, nayely breech presentation. Patient has been feeling well. Patient notes good movement. care has been uncomplicated. Renal blood work this patient has a blood type of O-, rubella status immune, hepatitis B surface engine negative, HIV negative, RPR is nonreactive, grew beta strep culture is negative. Review of Systems Constitutional: Denies chills, Denies fatigue, Denies fever Ears, nose, mouth and throat: Denies headache Cardiovascular: Reports edema Respiratory: Denies dyspnea Gastrointestinal: Denies constipation, Denies diarrhea, Denies nausea, Denies vomiting Genitourinary: Reports Past Medical History Past Medical History: No Reported History Additional Past Medical History / Comment(s): has pylinoidal cyst History of Any Multi-Drug Resistant Organisms: None Reported Past Surgical History: Tonsillectomy Additional Past Surgical History / Comment(s): [place] teeth. Past Anesthesia/Blood Transfusion Reactions: No Reported Reaction Past Psychological History: No Psychological Hx Reported Smoking Status: Never smoker Past Alcohol Use History: Occasional Past Drug Use History: None Reported - Past Family History Mother Family Medical History: Hypertension Medications and Allergies Home Medications Medication Instructions Recorded Confirmed Type Aspirin [Children's Aspirin] 81 mg PO DAILY 04/21/24 07/17/24 History Hhd309/Iron/FA/O3/Dha/Epa/Fish 1 each PO DAILY 04/21/24 07/17/24 History [ Multi-Dha Softgel] Allergies Allergy/AdvReac Type Severity Reaction Status Date / Time amoxicillin Allergy Unknown Verified 07/17/24 15:18 Iodinated Contrast Media Allergy Rash/Hives Verified 07/17/24 15:18 Penicillins Allergy Unknown Verified 07/17/24 15:18 Exam Osteopathic Statement: *. No significant issues noted on an osteopathic structural exam other than those noted in the History and Physical/Consult. Vital Signs Pulse Resp BP 07/17/24 15:17 83 16 134/83 Intake and Output 07/17/24 07/17/24 07/17/24 06:59 14:59 22:59 Other: Weight 89.358 kg Targeted physical exam was performed this date General Is well-nourished well- developed female in no acute distress, breathing is nonlabored, heart has a regular rate and rhythm, abdomen is gravid, cervical exam is deferred, heart tones are noted to be category 1 and she is cira irregularly. Results Result Diagrams: 07/17/24 15:35 Abnormal Lab Results - Last 24 Hours (Table) 07/17/24 Range/Units 15:35 Plt Count 142 L (150-450) k/uL Assessment and Plan (1) Term Current Visit: Yes Status: Acute Code(s): Z34.90 - ENCNTR FOR SUPRVSN OF NORMAL , UNSP, UNSP TRIMESTER SNOMED Code(s): 21312642 (2) Breech presentation Current Visit: Yes Status: Acute Code(s): O32.1XX0 - MATERNAL CARE FOR BREECH PRESENTATION, UNSP SNOMED Code(s): 5128693 (3) Oligohydramnios Current Visit: Yes Status: Acute Code(s): O41.00X0 - OLIGOHYDRAMNIOS, UNSP TRIMESTER, NOT APPLICABLE OR UNSP SNOMED Code(s): 91999832 Plan: 28-year-old 1 para 0 at 39-5/7 weeks that presents to labor and delivery for primary secondary to oligohydramnios and breech. Patient is counseled on primary . Patient is counseled on risks of surgery including but not limited to infection, bleeding, damage to bladder, bowel, injury. Patient states understanding, anesthesia is notified we will proceed with primary
[2024-07-17] MEDS: CITRIC ACID-SODIUM CITRATE 15 ML CUP PO ONE (18:27)
[2024-07-17] MEDS ORDERED: MORPHINE SULFATE (PF) 0.3 MG/0.3 ML SYR ONE (19:04)
[2024-07-17] MEDS ORDERED: OXYTOCIN 30 UNITS/500 ML NS BAG IV ONE (19:04)
[2024-07-17] MEDS ORDERED: ONDANSETRON 4 MG/2 ML VIAL ONE (19:04)
[2024-07-17] MEDS ORDERED: NALBUPHINE 10 MG/ML (10 ML MDV) ONE (19:04)
--- NOTE | 2024-07-17 19:50 | P.OP ---
Date of Procedure: 07/17/24 Preoperative Diagnosis: IUP at 39 and 5, oligohydramnios, breech presentation Postoperative Diagnosis: Same Procedure(s) Performed: Primary low-transverse section Anesthesia: spinal Surgeon: Thania Lundy Special Ed Assistant #1: Supriya Braswell Estimated Blood Loss (ml): 390 IV fluids (ml): 600 Urine output (ml): 100 Pathology: other (Placenta) Condition: stable Disposition: observation Indications for Procedure: Oligohydramnios, DUC of 2.5, breech presentation Operative Findings: Viable male infant delivered at 920, weight of 8 pounds 12 ounces, Apgars of 9 and 10 at 1 and 5 minutes respectively. Normal uterus tubes and ovaries were appreciated Description of Procedure: The patient was prepped and draped in the usual fashion after spinal anesthesia was administered by the anesthesia department. A Pfannenstiel incision was made and extended of the abdominal cavity without difficulty. The bladder peritoneum was elevated and incised and reflected distally. A 2 cm incision was made in the transverse plane of the lower uterine segment to enter the uterus at which time clear fluid was noted. The incision was extended in both directions using the bandage scissors. The sacrum was encountered within the field and delivered up and through the incision where the nose and mouth were thoroughly suctioned. Remainder of the was delivered onto the surgical field where the cord was doubly clamped, cut, and the infant was passed for resuscitative measures with weight and Apgars as noted above. The placenta was delivered manually, intact, and was grossly normal with a grossly normal three-vessel cord. The uterus was exteriorized and the interior cavity of the uterus swept of any remaining placental and membranous fragments with a laparotomy sponge. The margins of the incision were grasped with Allis clamps and the incision closed in 2 layers. First layer was a running locking layer of 0 micro from margin to margin followed by a second layer of imbricating 0 Vicryl from margin to margin. Any small points of bleeding were then made hemostatic with the Bovie. Once hemostasis was achieved, the posterior cul-de-sac was suctioned with a guard and the uterine and ovarian findings are as noted above. The uterus was replaced within the abdominal cavity and the gutters swept of any remaining blood fluid or clot. The incision was again reexamined and hemostasis was noted to be excellent. Any small point of bleeding were made hemostatic with the Bovie. Once hemostasis was achieved the parietal peritoneum was loosely reapproximated. The layer of muscles were examined and made hemostatic with the Bovie. Attention was then turned to the fascia which was closed with 0 Vicryl proceeding from 1 lateral edge to the other. The subcutaneous tissues were irrigated, made hemostatic with the Bovie, and reapproximated with a running stitch of 30 Vicryl. The skin was reapproximated with 4-0 Vicryl. Estimated blood loss for the case was approximately 390 mL. All sponge instrument and needle counts are correct. There were no complications. The patient tolerated the procedure well and proceeded to the recovery room in stable condition. Both mother and infant are resting comfortably in recovery.
[2024-07-17] MEDS ORDERED: diphenhydrAMINE 50 MG/ML 1 ML VIAL IVP PRN (19:59)
[2024-07-17] MEDS ORDERED: NALBUPHINE 10 MG/ML (10 ML MDV) IV PRN (19:59)
[2024-07-17] MEDS ORDERED: ONDANSETRON 4 MG/2 ML VIAL IVP PRN ×2 (19:59→20:20)
[2024-07-17] MEDS ORDERED: NALOXONE 0.4 MG/ML 1 ML VIAL IV PRN (19:59)
[2024-07-17] MEDS ORDERED: MORPHINE SULFATE 2 MG/ML SYRINGE IVP PRN (19:59)
--- NOTE | 2024-07-17 20:00 | P.ANPRN ---
Procedure Note - Anesthesia - Epidural/Spinal Spinal Time Out Performed: Yes Date of Procedure: 07/17/24 Procedure Start Time: 19:09 Procedure Stop Time: 09:13 Location of Patient: OB Indication: Acute Post-Operative Pain, Requested by Surgeon (christi) Sedation Type: Sedate with meaningful contact maintained Preparation: Sterile Prep Number of Attempts: 1 Position: Sitting Catheter: None Needle Guage: 25 Injectate: bupi 0.75% 1.2cc + Duramorph 300mcg Blood Aspirated: No Pain Paresthesia on Injection Noted: No Events: Uneventful and Well Tolerated
[2024-07-17] MEDS ORDERED: Acetaminophen-Codeine 300-30mg TAB PO PRN ×2 (20:20)
[2024-07-17] MEDS ORDERED: SIMETHICONE 80 MG CHEWABLE PO PRN (20:20)
[2024-07-17] MEDS: ACETAMINOPHEN IV (For NPO) 1,000 MG in EMPTY BAG 1 BAG IVPB ONE (20:37)
[2024-07-17] MEDS: LACTATED RINGERS 1,000 ML IV ONE (20:40)
[2024-07-17] MEDS: SENNOSIDES-DOCUSATE SODIUM 1 EACH TAB PO SCH (20:40)
[2024-07-17] MEDS: OXYTOCIN 30 UNITS/500 ML NS 30 UNIT in SALINE 1 500ML.BAG IV SCH (21:51)
[2024-07-18] MEDS: IBUPROFEN IV 800 MG in SODIUM CHLORIDE 0.9% 250 ML IV ONE (02:04)
[2024-07-18] MEDS: ACETAMINOPHEN TAB 500 MG TAB PO PRN (05:13)
[2024-07-18] MEDS: Rhogam IMMUNE GLOBULIN 1,500 UNIT/1 ML IM ONE (05:17)
[2024-07-18 07:30] LABS: Basophils % (A) 0 %; Eosinophils # (A) 0.1 k/uL (0-0.7); Eosinophils % (A) 1 %; HCT 33.5 % (34.0-46.0); HGB 11.3 gm/dL (11.4-16.0); Lymphocytes # (A) 1.3 k/uL (1.0-4.8); Lymphocytes % (A) 16 %; MCH 31.9 pg (25.0-35.0); MCHC 33.6 g/dL (31.0-37.0); MCV 94.8 fL (80.0-100.0); Mean Platelet Volume 9.2; Monocytes # (A) 0.3 k/uL (0-1.0); Monocytes % (A) 4 %; Neutrophils # (A) 6.3 k/uL (1.3-7.7); Neutrophils % (A) 78 %; Platelet Count 109 k/uL (150-450); RBC 3.53 m/uL (3.80-5.40); RDW 13.6 % (11.5-15.5); WBC 8.2 k/uL (3.8-10.6)
[2024-07-18] MEDS: IBUPROFEN 600 MG TAB PO PRN (07:37)
[2024-07-18] MEDS: PRENATAL VIT-IRON-FOLIC ACID 1 EACH TABLET PO SCH (07:37)
--- NOTE | 2024-07-18 12:43 | P.PN ---
Progress Note - Text 07/18/24 615am 28-year-old female status post spinal Duramorph, patient seen for postop pain control, she has a VAS of 2 with no complaints of nausea vomiting and mild pruritus which should subside
--- NOTE | 2024-07-18 13:01 | P.PNOBGPC ---
Subjective - Subjective Principal diagnosis: Postop day 1, primary , breech, oligohydramnios Interval history: Patient is doing well postoperatively. She is ambulating voiding without difficulty. She tolerated regular diet without nausea or vomiting. She denies concerns. Lochia is minimal. Patient reports: Reports appetite normal, Reports voiding normally, Reports pain well controlled, Reports ambulating normally : doing well Objective - Vital Signs Latest vital signs: Vital Signs Temp Pulse Resp BP Pulse Ox 07/18/24 07:40 97.6 F 65 16 120/73 97 07/18/24 06:00 18 07/18/24 04:00 97.8 F 68 16 118/66 97 07/18/24 02:00 16 07/18/24 00:19 96 07/18/24 00:00 98.1 F 69 17 136/70 96 07/17/24 22:22 16 07/17/24 21:48 97.4 F L 70 16 116/66 97 07/17/24 21:33 76 16 130/67 98 07/17/24 21:18 97.3 F L 67 16 131/69 98 07/17/24 21:03 65 16 140/67 98 07/17/24 20:59 16 98 07/17/24 20:48 68 16 143/75 98 07/17/24 20:33 72 16 139/79 98 07/17/24 20:18 72 16 138/75 97 07/17/24 20:03 97.0 F L 73 16 126/73 98 07/17/24 19:59 16 98 07/17/24 19:48 97.3 F L 77 16 130/83 98 07/17/24 15:17 83 16 134/83 Intake and Output 07/17/24 07/18/24 07/18/24 22:59 06:59 14:59 Output Total 1565 200 100 Balance -1565 -200 -100 Output: Urine 1050 200 100 Uretheral (Santos) 200 Estimated Blood Loss 125 Output, Quantitative 390 Blood Loss Other: # Voids 0 1 Weight 89.358 kg - Exam Extremities: Present: normal, edema Abdomen: Present: normal appearance, soft Incision: Present: normal, dry, intact Uterus: Present: normal, firm - Labs Labs: Abnormal Lab Results - Last 24 Hours (Table) 07/17/24 07/18/24 Range/Units 15:35 07:12 RBC 3.53 L (3.80-5.40) m/uL Hgb 11.3 L (11.4-16.0) gm/dL Hct 33.5 L (34.0-46.0) % Plt Count 142 L 109 L (150-450) k/uL Assessment and Plan (1) Term Current Visit: Yes Status: Acute Code(s): Z34.90 - ENCNTR FOR SUPRVSN OF NORMAL , UNSP, UNSP TRIMESTER SNOMED Code(s): 19029429 (2) Breech presentation Current Visit: Yes Status: Acute Code(s): O32.1XX0 - MATERNAL CARE FOR BREECH PRESENTATION, UNSP SNOMED Code(s): 0599421 (3) Oligohydramnios Current Visit: Yes Status: Acute Code(s): O41.00X0 - OLIGOHYDRAMNIOS, UNSP TRIMESTER, NOT APPLICABLE OR UNSP SNOMED Code(s): 88666843 (4) Status post section Current Visit: Yes Status: Acute Code(s): Z98.891 - HISTORY OF UTERINE SCAR FROM PREVIOUS SURGERY SNOMED Code(s): 157120775 Plan: Patient is doing well postoperatively. Encourage increase ambulation. Anticipate discharge home tomorrow.
[2024-07-18] MEDS ORDERED: ACETAMINOPHEN TAB 325 MG TAB PO PRN (18:01)
[2024-07-19 00:47] VITALS: RESP 16
--- NOTE | 2024-07-19 08:31 | P.DS ---
Providers Date of admission: 07/17/24 15:10 Expected date of discharge: 07/19/24 Attending physician: Thania Lundy Primary care physician: Lilliana Borja - Discharge Diagnosis(es) (1) Term Current Visit: Yes Status: Acute (2) Breech presentation Current Visit: Yes Status: Acute (3) Oligohydramnios Current Visit: Yes Status: Acute (4) Status post section Current Visit: Yes Status: Acute Hospital Course: 28-year-old 1 now para 1 that presented to labor and delivery on 07/17 for primary low-transverse section secondary to oligohydramnios and breech presentation. Full details in this patient please the dictated history and physical. Patient was taken back to the operating suite where was performed without difficulty. Patient delivered a viable male at 1920, weight of 8 pounds of ounces. For full details of the please see the dictated operative report. Patient's postoperative course has been uneventful. This postoperative day #2 she is ambulating and voiding without difficulty. She is tolerating a regular diet without nausea or vomiting. She states her pain is well-controlled. She denies concerns. She states she is ready for discharge on this postoperative day #2. Patient Condition at Discharge: Good Plan - Discharge Summary New Discharge Prescriptions: No Action Cwo840/Iron/FA/O3/Dha/Epa/Fish [ Multi-Dha Softgel] 1 each PO DAILY Aspirin [Children's Aspirin] 81 mg PO DAILY Discharge Medication List Aspirin [Children's Aspirin] 81 mg PO DAILY 04/21/24 [History] Mkh672/Iron/FA/O3/Dha/Epa/Fish [ Multi-Dha Softgel] 1 each PO DAILY 04/21/24 [History] Follow up Appointment(s)/Referral(s): Brittany Lopez MD [STAFF PHYSICIAN] - 1 Week Patient Instructions/Handouts: (DC), (GEN) Activity/Diet/Wound Care/Special Instructions: No intercourse, tampons or tub baths. No heavy lifting greater than a gallon of milk. No driving for two weeks. Call with any fever, shakes or chills, with any pain not alleviated by over the counter meds, or with any questions or concerns. Zewv-ngi-[id number] ibuprofen 600 mg or 3 tablets every 6 hours as needed for p ain. Tylenol may be used in addition in between Motrin doses 1 g with a total of 4 doses in 24 hours. Discharge Disposition: HOME SELF-CARE
[2024-07-19 08:49] VITALS: BP 122/85; PULSE 78; TEMP 98.6
== END 2024-07-19 12:45 | disposition home or self-care (01) | DRG 788 ==
LOC: 4FBP 15:10
PROVIDERS: ADMIT Obstetrics & Gynecology Obstetrics; ATTEND Obstetrics & Gynecology Obstetrics
PROC: 10D00Z1 Extraction of Products of Conception, Low, Open Approach (ICD-10-PCS; principal; 2024-07-17 19:00)
DX: O41.03X0 Oligohydramnios, third trimester, not applicable or unspecified (principal); O32.1XX0 Maternal care for breech presentation, not applicable or unspecified; Z3A.39 39 weeks gestation of pregnancy; Z37.0 Single live birth; Z79.82 Long term (current) use of aspirin; Z88.0 Allergy status to penicillin; Z91.041 Radiographic dye allergy status; Z82.49 Family history of ischemic heart disease and other diseases of the circulatory system

== ENCOUNTER 2024-09-18 17:22 | Emergency (ER) | payer BC ==
[2024-09-18 17:35] VITALS: TEMP 98.3
--- NOTE | 2024-09-18 17:57 | ED ---
Abdominal Pain HPI - General Source: patient, RN notes reviewed Mode of arrival: ambulatory Limitations: no limitations - History of Present Illness MD Complaint: abdominal pain Onset/Timin -: days(s) Location: suprapubic Severity scale (1-10): 7 Quality: sharp Consistency: intermittent Worsens With: movement Context: other (Positive test) <Bora Shanks - Last Filed: 09/18/24 17:53> <Arline Schwarz - Last Filed: 09/19/24 21:51> - General Chief Complaint: Abdominal Pain Stated Complaint: Abd pain, positive preg test Time Seen by Provider: 09/18/24 17:39 - History of Present Illness Initial Comments: Quick note: This is a 28-year-old female planing of left lower abdominal pain x 2 days. Patient states she went to an urgent care, thinking she had appendicitis, when it was found that she had a positive test then the provider expressed concern for ectopic . Patient states she is 9 weeks via and is unsure if the positive test is related to her last or new . Patient states pain is minimal when sitting still but worsens with movement (7 out of 10) patient denies fever, chills, chest pain, dyspnea, nausea, vomiting, diarrhea, urinary symptoms, abnormal vaginal bleeding. (Bora Shanks) 28-year-old female presenting with chief complaint of abdominal pain. Patient has been having lower abdominal pain for about 2 days. She went to urgent care earlier today and was found to have a positive test so they sent her here for further evaluation. Patient is 9 weeks after . No abnormal vaginal bleeding or vaginal discharge. No fever, chills, nausea, vomiting, diarrhea, hematochezia, melena, dysuria, hematuria, flank pain. No chest pain or difficulty breathing. Patient states that the pain is worse with walking. (Arline Schwarz) - Related Data Home Medications Medication Instructions Recorded Confirmed Aspirin [Children's Aspirin] 81 mg PO DAILY 04/21/24 07/17/24 [id number]/Iron/FA/O3/Dha/Epa/Fish 1 each PO DAILY 04/21/24 07/17/24 [ Multi-Dha Softgel] Allergies Allergy/AdvReac Type Severity Reaction Status Date / Time amoxicillin Allergy Unknown Verified 09/18/24 17:32 Iodinated Contrast Media Allergy Rash/Hives Verified 09/18/24 17:32 Penicillins Allergy Unknown Verified 09/18/24 17:32 Spinal tap drug Allergy Unknown Uncoded 09/18/24 17:32 Review of Systems ROS Other: All systems not noted in ROS Statement are negative. <Bora Shanks - Last Filed: 09/18/24 17:53> ROS Other: All systems not noted in ROS Statement are negative. <ChongArline - Last Filed: 09/19/24 21:51> ROS Statement: Those systems with pertinent positive or pertinent negative responses have been documented in the HPI. Past Medical History Past Medical History: No Reported History Additional Past Medical History / Comment(s): has pylinoidal cyst History of Any Multi-Drug Resistant Organisms: None Reported Past Surgical History: Tonsillectomy Additional Past Surgical History / Comment(s): [place] teeth. Past Anesthesia/Blood Transfusion Reactions: No Reported Reaction Past Psychological History: No Psychological Hx Reported Smoking Status: Never smoker Past Alcohol Use History: Occasional Past Drug Use History: None Reported - Past Family History Mother Family Medical History: Hypertension <Bora Shanks - Last Filed: 09/18/24 17:53> General Exam Limitations: no limitations <Bora Shanks - Last Filed: 09/18/24 17:53> General appearance: alert, in no apparent distress Head exam: Present: atraumatic, normocephalic, normal inspection Eye exam: Present: normal appearance, EOMI Neck exam: Present: normal inspection. Absent: meningismus Respiratory exam: Present: normal lung sounds bilaterally. Absent: respiratory distress, wheezes, rales, rhonchi, stridor Cardiovascular Exam: Present: regular rate, normal rhythm, normal heart sounds. Absent: systolic murmur, diastolic murmur, rubs, gallop, clicks GI/Abdominal exam: Present: soft, tenderness (nonlocalized). Absent: distended, guarding, rebound, rigid Neurological exam: Present: alert, oriented X3 Psychiatric exam: Present: normal affect, normal mood Skin exam: Present: warm, dry <SchwarzRuthdenny - Last Filed: 09/19/24 21:51> - General Exam Comments Initial Comments: Visual Physical Exam Vital signs reviewed General: Well-appearing, nontoxic, no acute distress. Head: Normocephalic, atraumatic Eyes: PERRLA, EOMI ENT: Airway patent Chest: Nonlabored breathing Skin: No visual rash, normal skin tone Neuro: Alert and oriented 3 Musculoskeletal: No gross abnormalities (Bora Shanks) Course Vital Signs 09/18/24 09/19/24 17:32 01:38 Temperature 98.3 F Pulse Rate 66 82 Respiratory 18 16 Rate Blood Pressure 127/70 124/82 O2 Sat by Pulse 97 98 Oximetry Medical Decision Making <Bora Shanks - Last Filed: 09/18/24 17:53> - Lab Data Result diagrams: 09/18/24 23:25 09/18/24 23:25 <Arline Schwarz - Last Filed: 09/19/24 21:51> - Medical Decision Making I completed the quick note portion of this chart signed BERNICE Watt (Bora Shanks) Was pt. sent in by a medical professional or institution (LESLY Tang, DRESSAGE INSTRUCTOR, urgent care, hospital, or jail...) When possible be specific @ -No Did you speak to anyone other than the patient for history (EMS, parent, family, police, friend...)? What history was obtained from this source @ -No Did you review nursing and triage notes (agree or disagree)? Why? @ -I reviewed and agree with nursing and triage notes Were old charts reviewed (outside hosp., previous admission, EMS record, old EKG, old radiological studies, urgent care reports/EKG's, jail records)? Report findings @ -No old charts were reviewed Differential Diagnosis (chest pain, altered mental status, abdominal pain women, abdominal pain men, vaginal bleeding, weakness, fever, dyspnea, syncope, headache, dizziness, GI bleed, back pain, seizure, CVA, palpatations, mental health, musculoskeletal)? @ -MDM Differential Abdominal Pain Women: Appendicitis, Cholecystitis, diverticulosis, ischemic bowel, pancreatitis, hepatitis, UTI, gastroenteritis, AAA, incarcerated hernia, bowel obstruction, constipation, inflammatory bowel, hepatitis, peptic ulcer disease, splenic i nfarction, perforated viscus, vulvitis, ovarian torsion, PID, kidney stone, placenta abruption... This is not meant to be an all-inclusive list EKG interpreted by me (3pts min.). @ -As above X-rays interpreted by me (1pt min.). @ -None done CT interpreted by me (1pt min.). @ -CT shows multiple fluid/air-filled mildly dilated small bowel loops/adynamic ileus. Large amount of formed fecal debris is seen throughout the colon. Gas filled somewhat distended redundant sigmoid colon. No bowel obstruction. A distended urinary bladder U/S interpreted by me (1pt. min.). @ -Ultrasound shows no evidence of intrauterine gestational sac What testing was considered but not performed or refused? (CT, X-rays, U/S, labs)? Why? @ -None What meds were considered but not given or refused? Why? @ -None Did you discuss the management of the patient with other professionals (professionals i.e. , PA, DRESSAGE INSTRUCTOR, lab, RT, psych nurse, director social, commissary steward, teacher, rating officer, family service caseworker)? Give summary @ -No Was smoking cessation discussed for >3mins.? @ -No Was critical care preformed (if so, how long)? @ -No Were there social determinants of health that impacted care today? How? (Homelessness, low income, unemployed, alcoholism, drug addiction, transportation, low edu. Level, literacy, decrease access to med. care, retirement, rehab)? @ -No Was there de-escalation of care discussed even if they declined (Discuss DNR or withdrawal of care, Hospice)? DNR status @ -No What co-morbidities impacted this encounter? (DM, HTN, Smoking, COPD, CAD, Cancer, CVA, ARF, Chemo, Hep., AIDS, mental health diagnosis, sleep apnea, morbid obesity)? @ -None Was patient admitted / discharged? Hospital course, mention meds given and route, prescriptions, significant lab abnormalities, going to OR and other pertinent info. @ -28-year-old female presenting with chief complaint of abdominal pain. 9 wee ks after . Was seen at urgent care earlier today and had a positive test. Workup is initiated by triage. hCG quantitative is less than 2.4. Ultrasound shows no evidence of intrauterine gestational sac. Patient is later placed in room and evaluated by myself. She has nonlocalized abdominal discomfort on palpation. Lab work shows no leukocytosis or anemia. Mild transaminitis. Urine shows no infectious process. CT shows adynamic ileus with large amount of fecal debris throughout the colon. Patient is educated on these findings. Patient is eager for discharge home to be back with her . I offered to perform an enema, patient would prefer to trial MiraLAX at home. I believe this is reasonable. I provided the patient with strict return parameters and instructions for use of MiraLAX. I also encouraged the patient to walk is much as possible and stay well-hydrated. Avoid any opioid pain medications, patient states that she is only taking Motrin and Tylenol at this time. Discharged. Follow-up with PCP. Report back to ER with any new or worsening symptoms. Discussed return parameters and answered all questions. Patient conveyed verbal understanding and agreed to the plan. I discussed this case in detail with my attending Dr. Vega Undiagnosed new problem with uncertain prognosis? @ -No Drug Therapy requiring intensive monitoring for toxicity (Heparin, Nitro, Insulin, Cardizem)? @ -No Were any procedures done? @ -No Diagnosis/symptom? @ -Adynamic ileus Acute, or Chronic, or Acute on Chronic? @ -Acute Uncomplicated (without systemic symptoms) or Complicated (systemic symptoms)? @ -Uncomplicated Side effects of treatment? @ -No Exacerbation, Progression, or Severe Exacerbation? @ -No (Arline Schwarz) - Lab Data Lab Results 09/18/24 09/18/24 09/18/24 Range/Units 19:32 19:32 19:32 WBC (3.8-10.6) k/uL RBC (3.80-5.40) m/uL Hgb (11.4-16.0) gm/dL Hct (34.0-46.0) % MCV (80.0-100.0) fL MCH (25.0-35.0) pg MCHC (31.0-37.0) g/dL RDW (11.5-15.5) % Plt Count (150-450) k/uL MPV Neutrophils % % Lymphocytes % % Monocytes % % Eosinophils % % Basophils % % Neutrophils # (1.3-7.7) k/uL Lymphocytes # (1.0-4.8) k/uL Monocytes # (0-1.0) k/uL Eosinophils # (0-0.7) k/uL Basophils # (0-0.2) k/uL Sodium (137-145) mmol/L Potassium (3.5-5.1) mmol/L Chloride (98-107) mmol/L Carbon Dioxide (22-30) mmol/L Anion Gap mmol/L BUN (7-17) mg/dL Creatinine (0.52-1.04) mg/dL Est GFR (CKD-EPI)AfAm (>60 ml/min/1.73 sqM) Est GFR (CKD-EPI)NonAf (>60 ml/min/1.73 sqM) Glucose (74-99) mg/dL Plasma Lactic Acid Jayden (0.7-2.0) mmol/L Calcium (8.4-10.2) mg/dL Total Bilirubin (0.2-1.3) mg/dL AST (14-36) U/L ALT (4-34) U/L Alkaline Phosphatase (38-126) U/L Total Protein (6.3-8.2) g/dL Albumin (3.5-5.0) g/dL Amylase (30-110) U/L Lipase (23-300) U/L HCG, Quant <2.4 mIU/mL Urine Color Colorless Urine Appearance Clear (Clear) Urine pH 6.5 (5.0-8.0) Ur Specific [place] 1.002 (1.001-1.035) Urine Protein Negative (Negative) Urine Glucose (UA) Negative (Negative) Urine Ketones Negative (Negative) Urine Blood Negative (Negative) Urine Nitrite Negative (Negative) Urine Bilirubin Negative (Negative) Urine Urobilinogen <2.0 (<2.0) mg/dL Ur Leukocyte Esterase Negative (Negative) Urine HCG, Qual Not Detected (Not Detectd) 09/18/24 09/18/24 09/18/24 Range/Units 23:25 23:25 23:25 WBC 6.8 (3.8-10.6) k/uL RBC 4.13 (3.80-5.40) m/uL Hgb 12.2 (11.4-16.0) gm/dL Hct 37.7 (34.0-46.0) % MCV 91.2 (80.0-100.0) fL MCH 29.6 (25.0-35.0) pg MCHC 32.5 (31.0-37.0) g/dL RDW 11.9 (11.5-15.5) % Plt Count 151 (150-450) k/uL MPV 7.9 Neutrophils % 53 % Lymphocytes % 37 % Monocytes % 6 % Eosinophils % 3 % Basophils % 1 % Neutrophils # 3.6 (1.3-7.7) k/uL Lymphocytes # 2.5 (1.0-4.8) k/uL Monocytes # 0.4 (0-1.0) k/uL Eosinophils # 0.2 (0-0.7) k/uL Basophils # 0.0 (0-0.2) k/uL Sodium 139 (137-145) mmol/L Potassium 3.9 (3.5-5.1) mmol/L Chloride 107 (98-107) mmol/L Carbon Dioxide 26 (22-30) mmol/L Anion Gap 6 mmol/L BUN 15 (7-17) mg/dL Creatinine 0.62 (0.52-1.04) mg/dL Est GFR (CKD-EPI)AfAm >90 (>60 ml/min/1.73 sqM) Est GFR (CKD-EPI)NonAf >90 (>60 ml/min/1.73 sqM) Glucose 71 L (74-99) mg/dL Plasma Lactic Acid Jayden 0.5 L (0.7-2.0) mmol/L Calcium 9.4 (8.4-10.2) mg/dL Total Bilirubin 0.8 (0.2-1.3) mg/dL AST 58 H (14-36) U/L ALT 71 H (4-34) U/L Alkaline Phosphatase 113 (38-126) U/L Total Protein 7.1 (6.3-8.2) g/dL Albumin 4.4 (3.5-5.0) g/dL Amylase 69 (30-110) U/L Lipase 129 (23-300) U/L HCG, Quant mIU/mL Urine Color Urine Appearance (Clear) Urine pH (5.0-8.0) Ur Specific [place] (1.001-1.035) Urine Protein (Negative) Urine Glucose (UA) (Negative) Urine Ketones (Negative) Urine Blood (Negative) Urine Nitrite (Negative) Urine Bilirubin (Negative) Urine Urobilinogen (<2.0) mg/dL Ur Leukocyte Esterase (Negative) Urine HCG, Qual (Not Detectd) Disposition <Bora Shanks - Last Filed: 09/18/24 17:53> Is patient prescribed a controlled substance at d/c from ED?: No <Arline Schwarz - Last Filed: 09/19/24 21:51> Clinical Impression: Adynamic ileus Disposition: HOME SELF-CARE Condition: Good Instructions (If sedation given, give patient instructions): Ileus (ED) Additional Instructions: Follow-up with your PCP. Report back to ER with any new or worsening symptoms. Take MiraLAX. Walk as frequently as possible. Stay well-hydrated. Referrals: Lilliana Borja MD [Primary Care Provider] - 1-2 days
--- NOTE | 2024-09-18 18:55 | US ---
EXAMINATION TYPE: Transabdominal DATE OF EXAM: 09/18/2024 6:23 PM COMPARISON: NONE CLINICAL INDICATION: Female, 28 years old with history of Left pelvic pain, positive hCG, rule out ec topic; Patient states 9 weeks post , left sided pain. positive test TECHNIQUE: Transvaginal (TV) and Transabdominal (TA) with grayscale and color Doppler imaging includi ng first trimester . FINDINGS: EXAM MEASUREMENTS: GESTATIONAL AGE / DATING Physician Established: Not yet established ( Dates by LMP: LMP unknown Dates by First Scan: No previous this is first scan Dates by Current Scan for: Unable to date by today's study MATERNAL ANATOMY Uterus: 7.7 x 3.9 x 5.5cm. The endometrium is thin and measures 0.5cm Right Ovary: 3.6 x 2.4 x 1.7cm. follicular changes noted, wnl Left Ovary: 2.4 x 2.0 x 1.7cm. follicular changes noted, wnl Post CDS / Adnexa: free fluid seen Presence of free fluid: yes Presence of corpus luteal cyst: no Presence of subchorionic bleed: no GESTATION / SURVEY IUP: No IUP seen at this time. ? too early vs hcg from previous (9 weeks post )? Date of LMP: Last period was September of 2023 prior to 1st Beta HcG (if available): Not available at this time IMPRESSION: No evidence of intrauterine gestational sac, correlate with B-hCG. If positive, this could represent early , ectopic or spontaneous . Follow up pelvic ultrasound in 5-7 days a nd serial beta hCG studies are recommended. [facility], , 09/18/2024 6:53 PM
[2024-09-18 20:22] LABS: Appearance,Urine Clear (Clear); Bilirubin,Urine Negative (Negative); Blood,Urine Negative (Negative); Color,Urine Colorless; Glucose,Urine (UA) Negative (Negative); Ketones,Urine Negative (Negative); Leukocyte Esterase,Urine Negative (Negative); Nitrite,Urine Negative (Negative); PH, Urine 6.5 (5.0-8.0); Protein,Urine Negative (Negative); Specific Gravity,Urine 1.002 (1.001-1.035); Urobilinogen,Urine <2.0 mg/dL (<2.0)
[2024-09-18] MEDS: SODIUM CHLORIDE 0.9% 1,000 ML IV STA (23:30)
[2024-09-18] MEDS: FAMOTIDINE 20 MG/2 ML VIAL IV STA (23:33)
[2024-09-18] MEDS: methylPREDNISolone SOD SUCCI 125 MG/2 ML VIAL IV STA (23:33)
[2024-09-18] MEDS: diphenhydrAMINE 50 MG/ML 1 ML VIAL IVP STA (23:33)
[2024-09-18 23:49] LABS: Basophils % (A) 1 %; Eosinophils # (A) 0.2 k/uL (0-0.7); Eosinophils % (A) 3 %; HCT 37.7 % (34.0-46.0); HGB 12.2 gm/dL (11.4-16.0); Lymphocytes # (A) 2.5 k/uL (1.0-4.8); Lymphocytes % (A) 37 %; MCH 29.6 pg (25.0-35.0); MCHC 32.5 g/dL (31.0-37.0); MCV 91.2 fL (80.0-100.0); Mean Platelet Volume 7.9; Monocytes # (A) 0.4 k/uL (0-1.0); Monocytes % (A) 6 %; Neutrophils # (A) 3.6 k/uL (1.3-7.7); Neutrophils % (A) 53 %; Platelet Count 151 k/uL (150-450); RBC 4.13 m/uL (3.80-5.40); RDW 11.9 % (11.5-15.5); WBC 6.8 k/uL (3.8-10.6)
[2024-09-18 23:59] LABS: ALT 71 U/L (4-34); AST 58 U/L (14-36); African American GFR (CKD) >90 (>60 ml/min/1.73 sqM); Albumin 4.4 g/dL (3.5-5.0); Alkaline Phosphatase 113 U/L (38-126); Amylase 69 U/L (30-110); Anion Gap 6 mmol/L; Blood Urea Nitrogen 15 mg/dL (7-17); Calcium 9.4 mg/dL (8.4-10.2); Carbon Dioxide 26 mmol/L (22-30); Chloride 107 mmol/L (98-107); Glucose 71 mg/dL (74-99); Lipase 129 U/L (23-300); Non-African American GFR(CKD) >90 (>60 ml/min/1.73 sqM); Potassium 3.9 mmol/L (3.5-5.1); Sodium 139 mmol/L (137-145); Total Bilirubin 0.8 mg/dL (0.2-1.3); Total Protein 7.1 g/dL (6.3-8.2)
--- NOTE | 2024-09-19 00:47 | CT ---
EXAM: CT Abdomen and Pelvis With Intravenous Contrast CLINICAL HISTORY: ITS.REASON CT Reason: Abdominal pain TECHNIQUE: Axial computed tomography images of the abdomen and pelvis with intravenous contrast. CTDI is 16.1 mGy and DLP is 754.9 mGy-cm. This CT exam was performed using one or more of the following dose reduction techniques: automated exposure control, adjustment of the mA and/or kV according to patient size, and/or use of iterative reconstruction technique. COMPARISON: CT pelvis: 01/15/2022 FINDINGS: Image quality is reduced by motion artifact. Lung bases: No mass. No consolidation. No pleural effusion ABDOMEN: Liver: Mild steatosis. A small 5.5 mm cystic structure present in the dome of the right hepatic lobe. No solid mass. Gallbladder and bile ducts: Unremarkable. No calcified stones. No ductal dilation. Pancreas: Unremarkable. No mass. No ductal dilation. Spleen: Upper normal size spleen. No focal lesion. Adrenals: Unremarkable. No mass. Kidneys and ureters: Both kidneys demonstrate symmetric nephrograms and contrast excretion. No solid mass. No hydronephrosis. Stomach and bowel: Unremarkable stomach. Fluid/air filled mildly up to 2.8 cm dilated small bowel loops, adynamic ileus. Large amount of stool is seen in the ascending, transverse and descending colon. A gas filled somewhat distended redundant sigmoid colon. No obstruction. No mucosal thickening. PELVIS: Appendix: No acute findings in the region of the appendix. Bladder: A distended bladder. No mass. Reproductive: Anteverted uterus. A 2.2 cm right adnexal/ovarian cyst. ABDOMEN and PELVIS: Intraperitoneal space: Unremarkable. No free air. No significant fluid collection. Bones/joints: No acute fracture. No dislocation. Soft tissues: Unremarkable. Vasculature: Unremarkable. No abdominal aortic aneurysm. Lymph nodes: Multiple small periaortic lymph nodes. No lymphadenopathy by CT size criteria. IMPRESSION: Multiple fluid/air filled mildly dilated small bowel loops/adynamic ileus. Large amount of formed fecal debris is seen throughout the colon. Gas filled somewhat distended redundant sigmoid colon. No bowel obstruction. A distended urinary bladder. .
[2024-09-19] MEDS: polyethylene glycoL 3350 17 GM POWD.PACK PO STA (01:13)
[2024-09-19 01:49] VITALS: BP 124/82; PULSE 82; RESP 16
== END 2024-09-19 01:38 | disposition home or self-care (01) ==
LOC: EC 17:22
CPT/HCPCS: 36415; 51798; 74177; 76801; 76817; 80053; 81003; 81025; 82150; 83605; 83690; 84702; 85025; 96361; 96374; 96375; 99284